=== PATIENT | female | born 1980 ===

== ENCOUNTER 2018-06-12 13:16 | Inpatient (IN) | payer OTHER, MEDICAID ==
--- NOTE | 2018-06-12 13:29 | ED PDOC ---
HPI: Psych/Substance Abuse Time Seen by Provider: 06/12/18 13:24 Chief Complaint (Nursing): Psychiatric Evaluation Chief Complaint (Provider): crisis eval History Per: Patient Additional Complaint(s): 37-year-old female with history of anxiety and depression presents with suicidal ideation. Patient states that she called her mother this morning to "say goodbye" and mother contacted the police. Upon arrival patient states her plan would be to slit her wrists. Patient missed a drinking daily and states that she had a glass of wine this morning. She denies any drug use. She is compliant with her antidepressants and anti-anxiety meds but states they're not helping. Past Medical History Reviewed: Historical Data, Nursing Documentation, Vital Signs Vital Signs: Last Vital Signs Temp 99.1 F 06/12/18 13:20 Pulse 78 06/12/18 13:20 Resp 18 06/12/18 13:20 BP 121/79 06/12/18 13:20 Pulse Ox 99 06/12/18 13:20 - Medical History PMH: Anxiety, Depression - Surgical History Surgical History: (x 2) - Family History Family History: States: No Known Family Hx - Living Arrangements Living Arrangements: With Family - Social History Current smoker - smoking cessation education provided: Yes Alcohol: > 2 Drinks/Day Drugs: Denies - Home Medications Home Medications: Ambulatory Orders Medication Instructions Recorded Alprazolam [Xanax] 0.5 mg PO Q12 PRN 06/12/18 Chlorthalidone [Hygroton] 25 mg PO DAILY 06/12/18 Enalapril Maleate [Vasotec] 20 mg PO Q12 06/12/18 Escitalopram [Lexapro] 20 mg PO DAILY 06/12/18 - Allergies Allergies/Adverse Reactions: Allergies Allergy/AdvReac Type Severity Reaction Status Date / Time No Known Allergies Allergy Verified 06/12/18 13:20 Review of Systems ROS Statement: Except As Marked, All Systems Reviewed And Found Negative Psych: Positive for: Suicidal ideation, Other (etoh) Physical Exam - Reviewed Nursing Documentation Reviewed: Yes Vital Signs Reviewed: Yes - Physical Exam Appears: Positive for: Well, Non-toxic, No Acute Distress Skin: Positive for: Normal Color. Negative for: Rash Eye Exam: Positive for: Normal appearance Cardiovascular/Chest: Positive for: Regular Rate, Rhythm Respiratory: Positive for: Normal Breath Sounds Neurologic/Psych: Positive for: Alert, Oriented - Laboratory Results Result Diagrams: 06/12/18 14:30 06/12/18 14:30 Urine POC: Negative - ECG Interpretation Of ECG: NSR 64 bpm, no acute finding, reviewed by PA and ED attending O2 Sat by Pulse Oximetry: 99 Pulse Ox Interpretation: Normal - Other Rad CXR X-Ray: Interpreted by Me, Viewed By Me X-Ray Interpretation: no acute finding Medical Decision Making Medical Decision Makin-year-old female with suicidal ideation Plan: One-to-one observation Crisis consult CBC CMP BAL UDS UA CXR EKG As per crisis counselor and psychiatrist construction millwright Dr. Kimball, patient does meet criteria for admission. Patient is medically stable for psychiatric admission. Disposition - Clinical Impression Clinical Impression: Acute depression, Anxiety - Patient ED Disposition Is Patient to be Admitted: Yes - Disposition Disposition Time: 15:59 Condition: FAIR - Pt Status Changed To: Hospital Disposition Of: Inpatient - Admit Certification Admit to Inpatient:: After my assessment, the patient will require hospitalization for at least two midnights. This is because of the severity of symptoms shown, intensity of services needed, and/or the medical risk in this patient being treated as an outpatient. Results - Lab Results Lab Results: 06/12/18 06/12/18 06/12/18 15:31 15:31 14:30 WBC 6.3 RBC 4.32 Hgb 12.5 Hct 37.2 MCV 86.1 MCH 28.9 MCHC 33.5 RDW 14.4 Plt Count 289 MPV 8.0 Neut % (Auto) 53.5 Lymph % (Auto) 35.6 [place] % (Auto) 5.8 Eos % (Auto) 3.9 Baso % (Auto) 1.2 Neut # (Auto) 3.4 Lymph # (Auto) 2.3 [place] # (Auto) 0.4 Eos # (Auto) 0.3 Baso # (Auto) 0.1 Sodium Potassium Chloride Carbon Dioxide Anion Gap BUN Creatinine Est GFR ( Amer) Est GFR (Non-Af Amer) Random Glucose Calcium Total Bilirubin AST ALT Alkaline Phosphatase Total Protein Albumin Globulin Albumin/Globulin Ratio Urine Color Yellow Urine Clarity Cloudy Urine pH 5.0 Ur Specific [place] 1.020 Urine Protein Negative Urine Glucose (UA) Neg Urine Ketones Negative Urine Blood Negative Urine Nitrate Negative Urine Bilirubin Negative Urine Urobilinogen 0.2-1.0 Ur Leukocyte Esterase Neg Urine RBC (Auto) 2 Urine Microscopic WBC 2 Ur Squamous Epith Cells 3 Urine Bacteria Rare Urine Opiates Screen Pending Urine Methadone Screen Negative Ur Barbiturates Screen Pending Ur Phencyclidine Scrn Pending Ur Amphetamines Screen Pending U Benzodiazepines Scrn Pending U Oth Cocaine Metabols Pending U Cannabinoids Screen Pending Alcohol, Quantitative 06/12/18 14:30 WBC RBC Hgb Hct MCV MCH MCHC RDW Plt Count MPV Neut % (Auto) Lymph % (Auto) [place] % (Auto) Eos % (Auto) Baso % (Auto) Neut # (Auto) Lymph # (Auto) [place] # (Auto) Eos # (Auto) Baso # (Auto) Sodium 142 Potassium 3.5 L Chloride 106 Carbon Dioxide 28 Anion Gap 12 BUN 10 Creatinine 0.7 Est GFR ( Amer) > 60 Est GFR (Non-Af Amer) > 60 Random Glucose 93 Calcium 9.4 Total Bilirubin 0.3 AST 26 ALT 30 Alkaline Phosphatase 59 Total Protein 7.2 Albumin 3.9 Globulin 3.3 Albumin/Globulin Ratio 1.2 Urine Color Urine Clarity Urine pH Ur Specific [place] Urine Protein Urine Glucose (UA) Urine Ketones Urine Blood Urine Nitrate Urine Bilirubin Urine Urobilinogen Ur Leukocyte Esterase Urine RBC (Auto) Urine Microscopic WBC Ur Squamous Epith Cells Urine Bacteria Urine Opiates Screen Urine Methadone Screen Ur Barbiturates Screen Ur Phencyclidine Scrn Ur Amphetamines Screen U Benzodiazepines Scrn U Oth Cocaine Metabols U Cannabinoids Screen Alcohol, Quantitative < 10
[2018-06-12 14:38] LABS: BASO # 0.1 K/uL (0.0-0.2); BASO % 1.2 % (0.0-2.0); EOS # 0.3 K/uL (0.0-0.7); EOS % 3.9 % (0.0-4.0); HEMOGLOBIN 12.5 g/dL (12.0-16.0); LYMPH # 2.3 K/uL (1.0-4.3); LYMPH % 35.6 % (20.0-40.0); MEAN CELL VOLUME 86.1 fl (81.0-99.0); MEAN CORPUSCULAR HEMOGLOBIN 28.9 pg (27.0-31.0); MEAN CORPUSCULAR HGB CONC 33.5 g/dL (33.0-37.0); MONO # 0.4 K/uL (0.0-0.8); MONO % 5.8 % (0.0-10.0); NEUT # 3.4 K/uL (1.8-7.0); NEUT % 53.5 % (50.0-75.0); RBC 4.32 Mil/uL (3.80-5.20); RED CELL DISTRIBUTION WIDTH 14.4 % (11.5-14.5); WHITE BLOOD COUNT 6.3 K/uL (4.8-10.8)
[2018-06-12 15:17] LABS: ALB/GLOB RATIO 1.2 (1.0-2.1); ALBUMIN 3.9 g/dL (3.5-5.0); ALT/SGPT 30 U/L (9-52); AST/SGOT 26 U/L (14-36); BLOOD UREA NITROGEN 10 mg/dl (7-17); CALCIUM 9.4 mg/dL (8.4-10.2); GFR NON-AFRICAN AMERICAN > 60
[2018-06-12 15:59] LABS: SQUAMOUS EPITHIAL 3 /hpf (0-5); URINE BACTERIA RARE (<OCC); URINE BILIRUBIN NEGATIVE (NEGATIVE); URINE BLOOD NEGATIVE (NEGATIVE); URINE CLARITY CLOUDY (Clear); URINE COLOR YELLOW (YELLOW); URINE GLUCOSE (UA) NEG (Normal); URINE LEUKOCYTE ESTERASE NEG Leu/uL (Negative); URINE PROTEIN NEGATIVE (NEGATIVE); URINE UROBILINOGEN 0.2-1.0 mg/dL (0.2-1.0)
[2018-06-12 16:10] LABS: BARBITURATES, UR NEGATIVE (NEGATIVE); BENZODIAZEPINES, UR POSITIVE (NEGATIVE); OPIATES, UR NEGATIVE (NEGATIVE); PHENCYCLIDINE, UR NEGATIVE (NEGATIVE)
--- NOTE | 2018-06-12 16:26 | RAD ---
Date of service: 06/12/2018 HISTORY: clearance COMPARISON: No prior. FINDINGS: LUNGS: The lungs are well inflated and clear. PLEURA: No significant pleural effusion identified, no pneumothorax apparent. CARDIOVASCULAR: Normal. OSSEOUS STRUCTURES: No significant abnormalities. VISUALIZED UPPER ABDOMEN: Normal. OTHER FINDINGS: None. IMPRESSION: No active pulmonary disease.
[2018-06-12 16:50] VITALS: O2SAT 98
[2018-06-12] MEDS ORDERED: Magnesium Hydroxide Susp 30 ml UD PO PRN (17:51)
[2018-06-12] MEDS ORDERED: Alum-Mag Hydrox-Simethicone Susp (30 mL) PO PRN (17:51)
[2018-06-12] MEDS ORDERED: DiphenhydrAMINE 50 mg/ml Inj IM PRN (17:51)
--- NOTE | 2018-06-12 18:18 | PCM.BM ---
Treatment Plan Problems - Problems identified on initial assessmt Hopelessness/Helplessness Date Initiated: 06/12/18 Time Initiated: 18:17 Assessment reference: NA Status: Active Altered Sleep Patterns Date Initiated: 06/12/18 Time Initiated: 18:18 Assessment reference: NA Status: Active Treatment assets and liabiliti Patient Assests: educated, ADL independent, physically healthy, good support system, negotiates basic needs Patient Liabilities: financial problems, substance abuse - Milieu Protocol Maintain good personal hygiene: daily Encourage regular showers, daily Remind patient to perform daily oral care, daily Assist patient to perform ADL's Conduct patient checks and document Observation sheet: Q15 minutes Maintain personal safety: every shift Educate patient to report safety concerns to staff, every shift Monitor environment for contraband/sharps Medication safety: Monitor for expected outcome, potential side effects: every shift, Assess barriers to learning: every shift, Assess readiness for medication education: every shift Family Contact Family involvement: Family/SO is involved Family contact: Patient agrees to contact
[2018-06-12 21:16] VITALS: RESP 18
[2018-06-13 06:36] LABS: BASO # 0.1 K/uL (0.0-0.2); BASO % 0.9 % (0.0-2.0); EOS # 0.3 K/uL (0.0-0.7); EOS % 4.6 % (0.0-4.0); HEMOGLOBIN 11.7 g/dL (12.0-16.0); LYMPH # 2.3 K/uL (1.0-4.3); LYMPH % 38.8 % (20.0-40.0); MEAN CELL VOLUME 85.9 fl (81.0-99.0); MEAN CORPUSCULAR HEMOGLOBIN 28.5 pg (27.0-31.0); MEAN CORPUSCULAR HGB CONC 33.2 g/dL (33.0-37.0); MEAN PLATELET VOLUME 8.5 fl (7.2-11.7); MONO # 0.3 K/uL (0.0-0.8); MONO % 5.7 % (0.0-10.0); NRBC % 0.1 % (0.0-0.0); RBC 4.09 Mil/uL (3.80-5.20); RED CELL DISTRIBUTION WIDTH 14.4 % (11.5-14.5)
[2018-06-13 07:06] LABS: ALB/GLOB RATIO 1.2 (1.0-2.1); ALBUMIN 3.5 g/dL (3.5-5.0); ALT/SGPT 30 U/L (9-52); AMYLASE 73 U/L (30-110); AST/SGOT 25 U/L (14-36); BLOOD UREA NITROGEN 15 mg/dl (7-17); GFR NON-AFRICAN AMERICAN > 60; LIPASE 117 U/L (23-300); T4 4.63 ug/dl (5.5-11.0)
--- NOTE | 2018-06-13 08:25 | CARD ---
APPROVED REPORT Date of service: 06/12/2018 EKG Measurement Heart [id number] <Conclusion> Normal sinus rhythm Normal ECG
[2018-06-13] MEDS ORDERED: Multivitamin With Minerals Tab PO SCH (09:00)
[2018-06-13 09:54] VITALS: BP 133/79; PULSE 65; TEMP 97.7
--- NOTE | 2018-06-13 19:39 | PCM.PSYCH ---
Initial Psychiatric Evaluation - Initial Psychiatric Evaluation Chief Complaint (in patient's own words): came to er via police after mother reportedly called after pt reportedly question life after loosen job after being reportedly layed off Patient's Reaction to Hospitalization: pt did not wish to remain inpt as she wishes to follow up opd History of Present Illness and Precipitating Events: recently lost job, became upset, called mother, expressed questions about life and loosening job, had been receiving lexapro and alprazolam in community from pmd as pt reportedly self directed to report anxiety and depression Current Medications: Active Medications Generic Name Dose Route Start Last Admin Trade Name Freq PRN Reason Stop Dose Admin Acetaminophen 650 mg 06/12/18 17:51 Tylenol 325mg Tab PO Q4 PRN Pain, moderate (4-7) Al Hydrox/Mg Hydrox/Simethicone 30 ml 06/12/18 17:51 Maalox Plus 30 Ml PO Q4 PRN Dyspepsia Diphenhydramine HCl 50 mg 06/12/18 17:51 Benadryl IM Q6 PRN Extrapyramidal S/S Unable PO Diphenhydramine HCl 50 mg 06/12/18 17:51 06/12/18 21:09 Benadryl PO 50 mg Q6 PRN Administration Extrapyramidal Symptoms Diphenhydramine HCl 50 mg 06/12/18 21:13 Benadryl PO HS PRN Sleep Folic Acid 1 mg 06/13/18 09:00 06/13/18 10:09 Folic Acid PO Not Given DAILY JAQUELINE Haloperidol 5 mg 06/12/18 17:51 Haldol PO Q4 PRN Agitation Haloperidol Lactate 5 mg 06/12/18 17:51 Haldol IM Q4 PRN Agitation, Unable to Take PO Lorazepam 2 mg 06/12/18 17:51 Ativan IM Q4 PRN Anxiety/Agitation,Unable PO Lorazepam 2 mg 06/12/18 17:51 Ativan PO Q4 PRN Anxiety/Agitation Lorazepam 1 mg 06/13/18 09:00 06/13/18 17:27 Ativan PO 1 mg TID JAQUELINE Administration Magnesium Hydroxide 30 ml 06/12/18 17:51 Milk Of Magnesia PO HS PRN Constipation Multivitamins/Minerals 1 tab 06/13/18 09:00 06/13/18 10:09 Therapeutic-M Tab PO Not Given DAILY JAQUELINE Thiamine HCl 100 mg 06/13/18 09:00 06/13/18 10:09 Vitamin B1 Tab PO Not Given DAILY JAQUELINE Past Psychiatric History - Past Psychiatric History Prior Professional Help: received lexapro and alprazolam from pmd in community History of Abuse: denies Pertinent Medical Hx (Current Medical&Sleep Prob, Allergies): Allergies Allergy/AdvReac Type Severity Reaction Status Date / Time No Known Allergies Allergy Verified 06/12/18 13:20 Alprazolam [Xanax] 0.5 mg PO Q12 PRN 06/12/18 Chlorthalidone [Hygroton] 25 mg PO DAILY 06/12/18 Enalapril Maleate [Vasotec] 20 mg PO Q12 06/12/18 Escitalopram [Lexapro] 20 mg PO DAILY 06/12/18 Review of Systems - Psychiatric Psychiatric: Anxiety, Depression Mental Status Examination - Personal Presentation Personal Presentation: Looks older than stated age - Affect Affect: Broad - Motor Activity Motor Activity: Calm - Reliability in Providing Information Reliability in Providing Information: Good - Speech Speech: Organized - Mood Mood: Depressed, Anxious Additional comments: denies aston vacillation mood - Cognitive Functions Orientation: Person, Place, Situation, Time Sensorium: Alert Attention/Concentration: Attentive Judgement: Intact, as evidence by: Good judgement Memory: Recent intact, as evidence by: Ability to recall events of the day - Strength & Assets Inventory Strength & Assets Inventory: Intelligence, Family support, Cooperative ( recently lost job,) DSM 5 DX - DSM 5 DSM 5 Diagnosis: major depressive disorder mild to moderate - Recommended/Plan of Treatment Treatment Recommendations and Plan of Treatment: adm per attending vital signs per protocol and per clinical status as well as clinical observation pt defer needing to stay, does believe care will be best provided by remaining inpt., request information related to being treated in the community, has support of mother, staff been in communication with mother corroborative information obtained clarification of voluntary admission provided by team members discharge planning in progress Projected ELOS: 22-48 hours Prognosis: guarded Discharge Plan and Discharge Criteria: safety - Smoking Cessation Smoking Cessation Initiated: No Reason for not providing: deferred
--- NOTE | 2018-06-13 19:48 | PCM.PYCHDC ---
Mental Status Examination - Mental Status Examination Orientation: Person, Place, Situation, Time Memory: Intact Mood: Depressed, Anxious Affect: Broad Speech: Appropriate Attention: WNL Concentration: WNL Association: WNL Fund of Knowledge: WNL Formal Thought Process: No Impairment Description of patient's judgement and insight: appears to be intact allowed team members to contact speak with mother to obtain corroborative information verbally agreeable to receive information and follow up with natalie simental pending referral to longer term (community based psychotherapy/ psychopharmacology follow up) Psychotic Thoughts and Behaviors: non reported non admitted Suicidal Ideation: No Current Homicidal Ideation?: No Discharge Summary - Discharge Note Reason for Hospitalization: pt did not wish to remain inpt as she wishes to follow up opd Laboratory Data: Abnormal Lab Results 06/13/18 06/13/18 06/13/18 06:20 06:20 06:20 WBC 6.0 RBC 4.09 Hgb 11.7 L Hct 35.2 MCV 85.9 MCH 28.5 MCHC 33.2 RDW 14.4 Plt Count 266 MPV 8.5 Neut % (Auto) 50.0 Lymph % (Auto) 38.8 [place] % (Auto) 5.7 Eos % (Auto) 4.6 H Baso % (Auto) 0.9 Neut # (Auto) 3.0 Lymph # (Auto) 2.3 [place] # (Auto) 0.3 Eos # (Auto) 0.3 Baso # (Auto) 0.1 Sodium 141 Potassium 3.4 L Chloride 105 Carbon Dioxide 30 Anion Gap 9 L BUN 15 Creatinine 0.7 Est GFR ( Amer) > 60 Est GFR (Non-Af Amer) > 60 Random Glucose 78 Calcium 9.0 Total Bilirubin 0.5 AST 25 ALT 30 Alkaline Phosphatase 58 Total Protein 6.5 Albumin 3.5 Globulin 2.9 Albumin/Globulin Ratio 1.2 Amylase 73 Lipase 117 Thyroxine (T4) 4.63 L TSH 3rd Generation 1.82 RPR Nonreactive Consultations:: List each consultation separately and include: 1. Reason for request. 2. Findings. 3. Follow-up Consultations: pt seen by ER physician Summary of Hospital Course include:: 1. Description of specific treatment plan utilized for patients during their course of treatmen. 2. Summarize the time- course for resolution of acute symptoms and/or regressed behaviors. 3. Describe issues identified and worked on during hospitalization. 4. Describe medication utilized. 5. Describe medical problems identified and treated. 6. Reassessment of suicide risk Summary of Hospital Course: recently lost job, became upset, called mother, expressed questions about life and loosening job, had been receiving lexapro and alprazolam in community from pmd as pt reportedly self directed to report anxiety and depression. was admitted voluntarily but requested to be discharged with community followup. pt received information from team staff related voluntary admission. pt was verbally agreeable to have mother come to provide corroborative information, mother was to see pt., pt was evaluated-pt has support system as well will be referred to [facility]. . - Final Diagnosis (DSM 5) Condition upon Discharge: FAIR Disposition: HOME/ ROUTINE Follow-up Treatment Plan: -pt to discharged per attending md, with referrral to [facility] pending longer term community based treatment pt's mother was on unit verbally agreeable to assist pt with follow up at [facility] pt to resume treatment as per pmd review with pt do not abruptly stop rx unless directed by provider, possible benzodiazepien withdrawal, poss. serotonin withdrawal syndrome crisis plan [id number] pt is not acute suicidal, not acutely homicidal, denies psychosis, appears to have fair to good insight, has support system-pt to be discharged - Smoking Cessation Smoking Cessation Medication prescribed: No Reason for not providing: pt defers - Antipsychotic Medications Pt discharged on 2 or more routine antipsychotic medications: No - Justification for 2 or more meds Augmentation of Clozapine: Yes (no clinically indicated)
== END 2018-06-13 18:10 | disposition home or self-care (01) | DRG 885 ==
LOC: H.ER 13:16 → H.ERHOLD 15:32 → H.PSYCH 17:15
PROVIDERS: ADMIT Psychiatry & Neurology Psychiatry; ATTEND Psychiatry & Neurology Psychiatry
PROC: GZHZZZZ Group Psychotherapy (ICD-10-PCS; principal; 2018-06-12)
PROC: GZ58ZZZ Individual Psychotherapy, Cognitive-Behavioral (ICD-10-PCS; 2018-06-12)
DX: F32.1 Major depressive disorder, single episode, moderate (principal); R45.851 Suicidal ideations; F41.9 Anxiety disorder, unspecified; F17.210 Nicotine dependence, cigarettes, uncomplicated